=== PATIENT | male | born 1950 | race Two or more races ===

== ENCOUNTER 2020-05-06 09:51 | Inpatient (IN) | payer MEDICAID ==
[~2020-05-06] VITALS: Ht 182.9 cm; Wt 96.5 kg
[2020-05-06 10:34] LABS: Basophils # (auto) 0 10 ^3/uL (0-0.2); Basophils % (auto) 0.8 % (0.0-2.0); Eosinophils # (auto) 0.1 10 ^3/uL (0-0.8); Eosinophils % (auto) 1.7 % (0.0-7.0); Hematocrit 43.3 % (41.0-53.0); Hemoglobin 15.2 g/dL (13.5-17.5); Lymphocytes # (auto) 1.4 10 ^3/uL (0.4-5.4); Lymphocytes % (auto) 25.6 % (10.0-50.0); Mean Corpuscular Hemoglobin 33.3 pg (28.0-32.0); Mean Corpuscular Hgb Conc. 35.1 g/dL (32.0-36.0); Mean Corpuscular Volume 94.7 fL (80.0-100.0); Monocytes # (auto) 0.5 10 ^3/uL (0-1.3); Monocytes % (auto) 9.2 % (0.0-12.0); Neutrophils # (auto) 3.5 10 ^3/uL (1.6-8.6); Neutrophils % (auto) 62.7 % (37.0-80.0); Platelet Count (auto) 203 10^3/uL (140-450); Red Blood Cells 4.57 10^6/uL (4.5-5.90); Red Cell Distribution Width 13.5 % (11.8-14.3); White Blood Cell 5.6 10^3/uL (4.4-10.8)
[2020-05-06 10:51] LABS: Albumin 3.9 g/dL (3.4-5.0); Anion Gap 6 (5-15); Blood Urea Nitrogen 21 mg/dL (7-18); Calcium 9.2 mg/dL (8.5-10.1); Carbon Dioxide 25 mmol/L (21-32); Chloride 109 mmol/L (98-107); Glucose 96 mg/dL (74-106); INR 1.02 (0.9-1.15); Magnesium 2.5 mg/dL (1.6-2.6); Potassium 3.7 mmol/L (3.5-5.1); Sodium 140 mmol/L (136-145)
[2020-05-06 10:58] LABS: Alanine Aminotransferase 47 U/L (16-61); Alkaline Phosphatase 70 U/L (45-117); Aspartate Aminotransferase 30 U/L (15-37); BUN/Creatinine Ratio 12.4; Bilirubin, Total 2.5 mg/dL (0.2-1.0); GFR African American 52 mL/min; GFR Non-African American 43 mL/min; Total Protein 7.5 g/dL (6.4-8.2)
[2020-05-06] MEDS: SODIUM CHLORIDE 0.9% 1,000 ML IV SCH (12:00)
[2020-05-06] MEDS ORDERED: MORPHINE SULF INJ 2 MG/ML SYRINGE 1ML IV PRN (12:00)
[2020-05-06] MEDS ORDERED: NITROGLYCERIN 0.4 MG SL TAB SL PRN (12:00)
[2020-05-06] MEDS ORDERED: ONDANSETRON ODT 4 MG TAB PO PRN (12:15)
[2020-05-06] MEDS ORDERED: DOCUSATE SOD 100 MG CAP PO PRN (12:15)
--- NOTE | 2020-05-06 13:35 | NUR ---
SPOKE WITH DR. GAMEZ REGARDING PATIENTS STATUS AND CARDIOLOGY CONSULT. NO NEW ORDERS RECEIVED AT THIS TIME. Addendum: 05/06/20 at 7463 by XANDER WEST RN RN THE ABOVE NOTE WAS FOR 0128.
--- NOTE | 2020-05-06 14:20 | NUR ---
RECEIVED PATIENT FROM ER FOR TELE HOLD OVERFLOW. PATIENT AWAKE AND ALERT, NO S/S OF DISTRESS NOTED. CARDIAC MONITORS SHOW SINUS EDUARDA 40'S, PATIENT CURRENTLY ASYMPTOMATIC. PATIENT DENIES ANY PAIN AT THIS TIME. SAFETY PRECAUTIONS IN PLACE.
[2020-05-06 14:41] VITALS: BP 130/65
[2020-05-06] MEDS ORDERED: LOSA25TA38 PO (15:06)
--- NOTE | 2020-05-06 15:30 | NUR ---
SURVEYOR'S ASSISTANT AT BEDSIDE.
[2020-05-06 16:00] VITALS: BP 125/61
--- NOTE | 2020-05-06 16:20 | NUR ---
CALLED REPORT TO JOSE MARIA HUDSON. PATIENT TRANSFERRED BY SELMA MOISE TO ROOM 218A [facility]IA [facility] IN STABLE CONDITION ON TELE MONITOR AND WITH ALL BELONGINGS.
--- NOTE | 2020-05-06 17:45 | NUR ---
PT AWAKE, ALERT, ORIENTED x4 DENIES ANY DISCOMFORT. EFFORTLESS BREATHING ON ROOM AIR. PT ORIENTED TO ROOM ENVIRONMENT. IV TO LEFT HAND #20 BED IN LOWEST POSITION, CALL LIGHT WITHIN REACH.
--- NOTE | 2020-05-06 18:00 | NUR ---
DR. GAMEZ AT BEDSIDE.
--- NOTE | 2020-05-06 19:15 | NUR ---
OPENING NOTE- NOC SHIFT PATIENT IS ALERT AND ORIENTED X4. PATIENT IS SPEAKS PERSIAN ONLY. PATIENT IS IN BED, BED IS LOCKED AT LOWEST POSITION, BED RAILS UP X2 AND HEAD OF BED IS UP >30 DEGREES. BEDSIDE TABLE WITHIN REACH, CALL LIGHT WITHIN REACH. DISCUSSED POC WITH PATIENT AND INSTRUCTED PATIENT TO CALL PRN; PATIENT VERBALIZED UNDERSTANDING. WILL CONTINUE TO MONITOR Q1H AND PRN.
--- NOTE | 2020-05-06 19:45 | NUR ---
PATIENT UP TO BATHROOM INDEPENDENTLY; STEADY GAIT NOTED.
[2020-05-06 22:00] VITALS: BP_SYST 127
--- NOTE | 2020-05-07 03:05 | NUR ---
EKG COMPLETED FOR BRADYCARDIA. HARDCOPY READING IN HARD CHART.
[2020-05-07] MEDS: SODIUM CHLORIDE 0.9% 1,000 ML IV SCH ×2 (03:17→13:09)
[2020-05-07 05:00] VITALS: BP 137/68
[2020-05-07 06:18] LABS: Basophils # (auto) 0.1 10 ^3/uL (0-0.2); Basophils % (auto) 1.1 % (0.0-2.0); Eosinophils # (auto) 0.2 10 ^3/uL (0-0.8); Eosinophils % (auto) 3.6 % (0.0-7.0); Hematocrit 41.6 % (41.0-53.0); Hemoglobin 14.2 g/dL (13.5-17.5); Lymphocytes # (auto) 1.4 10 ^3/uL (0.4-5.4); Lymphocytes % (auto) 25.8 % (10.0-50.0); Mean Corpuscular Hemoglobin 32.5 pg (28.0-32.0); Mean Corpuscular Hgb Conc. 34.2 g/dL (32.0-36.0); Mean Corpuscular Volume 95.2 fL (80.0-100.0); Monocytes # (auto) 0.5 10 ^3/uL (0-1.3); Monocytes % (auto) 9.5 % (0.0-12.0); Neutrophils # (auto) 3.3 10 ^3/uL (1.6-8.6); Nucleated Red Blood Cells % 0.4 %; Platelet Count (auto) 183 10^3/uL (140-450); Red Blood Cells 4.37 10^6/uL (4.5-5.90); Red Cell Distribution Width 13.5 % (11.8-14.3); White Blood Cell 5.4 10^3/uL (4.4-10.8)
[2020-05-07 06:38] LABS: BUN/Creatinine Ratio 13.1; Calcium 8.6 mg/dL (8.5-10.1); Potassium 3.8 mmol/L (3.5-5.1)
--- NOTE | 2020-05-07 07:05 | NUR ---
CLOSING NOTE- NOC SHIFT ENDORSED PATIENT CARE TO DAY SHIFT NURSE ADEBAYO MOISE. PATIENT IS COMFORTABLE IN BED. NO S/SX OF DISTRESS OR SOB. PATIENT DENIES PAIN AT THIS TIME.
--- NOTE | 2020-05-07 08:50 | NUR ---
PT TAKEN TO STRESS TEST VIA WHEELCHAIR. NO S/S OF DISTRESS.
[2020-05-07 09:00] VITALS: BP 126/71
--- NOTE | 2020-05-07 09:40 | NUR ---
PT BACK IN UNIT. PT IN LOW FOWLERS. DENIES ANY DISCOMFORT.
[2020-05-07] MEDS ORDERED: LOSARTAN POTASSIUM 25 MG TAB PO SCH (10:00)
[2020-05-07] MEDS ORDERED: LIDOCAINE 2%HCL (LOCAL ANESTH.) INJ 20ML MDV ONE (10:04)
--- NOTE | 2020-05-07 10:35 | NUR ---
PT TAKEN TO ELECTRICAL EQUIPMENT ASSEMBLER VIA BED. NO S/S OF DISTRESS.
[2020-05-07] MEDS ORDERED: ANGIOMAX 250 MG VIAL IV ONE (10:49)
[2020-05-07] MEDS ORDERED: MIDAZOLAM HCL 1MG/1ML-2 ML VIAL ONE (10:50)
[2020-05-07] MEDS ORDERED: fentaNYL CITRATE 100 MCG/2 ML VL ONE (10:50)
[2020-05-07] MEDS ORDERED: VERAPAMIL 2.5MG/ML INJ 2ML VIAL IV ONE (10:50)
[2020-05-07] MEDS ORDERED: SODIUM CHL 0.9% 50 ML ONE (10:50)
[2020-05-07] MEDS ORDERED: HEPARIN SODIUM (PORCINE) 5000 UNITS/ML 1ML VIAL ONE (10:50)
[2020-05-07] MEDS ORDERED: IODIXANOL 320MG/ML 100ML BTL IV ONE (11:23)
[2020-05-07] MEDS ORDERED: ADENOSINE 6 MG/2 ML INJ IV ONE (11:32)
[2020-05-07] MEDS ORDERED: diphenhdrAMINE HCL 50 MG/1 ML VL ONE (11:36)
[2020-05-07] MEDS ORDERED: ADENOSINE 90 MG/30 ML INJ IV ONE (11:37)
[2020-05-07] MEDS ORDERED: SODIUM CHLORIDE 0.9% 1,000 ML IV SCH (12:17)
[2020-05-07 13:00] VITALS: BP 113/65
[2020-05-07] MEDS: SODIUM CHLOR 0.9% PF (SALINE LOCK) 10ML VIAL/SYR IV SCH ×2 (13:10→22:14)
--- NOTE | 2020-05-07 14:43 | NUR ---
1300: PT BACK FROM AN/SYQ 13 NAV/C2 OPERATOR. TR BAND TO RIGHT WRIST ASYMPTOMATIC AT MOMENT. 1330: BAND DEFLATION INITIATED. 1430: BAND DEFLATION COMPLETED. NO ACTIVE BLEEDING AT MOMENT. TEGADERM DRESSING IN PLACE. SENSATION INTACT, +2 PULSES TO ALL EXTREMITIES. CALL LIGHT WITHIN REACH. WILL CONTINUE TO MONITOR.
[2020-05-07 17:00] VITALS: BP 118/66
--- NOTE | 2020-05-07 20:20 | NUR ---
ORTHOSTATIC VITAL SIGNS 128/68 48 HR 94%
[2020-05-07 22:00] VITALS: BP 125/64
[2020-05-08] MEDS: SODIUM CHLORIDE 0.9% 1,000 ML IV SCH ×2 (04:11→10:49)
--- NOTE | 2020-05-08 05:00 | NUR ---
ORTHOSTATIC VITALS SIGNS 128/58 44 HR 96% O2
[2020-05-08] MEDS: SODIUM CHLOR 0.9% PF (SALINE LOCK) 10ML VIAL/SYR IV SCH ×3 (06:00→22:00)
--- NOTE | 2020-05-08 06:26 | NUR ---
SPOKE WITH DOCTOR FRANCO GAMEZ MD AWARE OF PATIENT'S HEART RATE IN 30s AND SPORADICALLY DROPPING TO 29. PATIENT IS ASYMPTOMATIC. PATIENT DENIES DIZZINESS. BED ALARM ON AND INSTRUCTED PATIENT TO CALL USING CALL LIGHT FOR STANDBY ASSISTANCE WHEN GETTING OUT OF BED AND PRN; PATIENT VERBALIZED UNDERSTANDING. CALL LIGHT WITHIN REACH. PATIENT ON CONTINUOUS EKG MONITORING.
--- NOTE | 2020-05-08 07:30 | NUR ---
RECEIVED REPORT AND CONTINUATION OF CARE,PATIENT AWAKE,ALERT SPEAK ROMANIAN ONLY,ON ROOM AIR,NO DISTRESS NO DISCOMFORT,HR REMAINS BRADYCARDIC AT HR 0F 44,NO C/O DIZZINESS,NO CHEST PAIN,CALL LIGHT WITHIN REACH PATIENT REMINDED INSTRUCTED TO CALL FOR ASSISTANCE,PATIENT VERBALIZED UNDERSTANDING.
--- NOTE | 2020-05-08 08:00 | NUR ---
MD VISIT DR. Soco ROSS HERE TO SEE PATIENT,UPDATED WITH PLAN OF CARE
[2020-05-08 09:00] VITALS: BP 144/70
--- NOTE | 2020-05-08 09:00 | NUR ---
OOB,AMBULATES TO REST ROOM NO DISTRESS,NO DISCOMFORT
--- NOTE | 2020-05-08 12:09 | NUR ---
TELEMETRY SHOWING SINUS BRADYCARDIA HR OF 38 TO 42 ,SYMPTOMATIC,NO DIZZINESS
[2020-05-08 13:00] VITALS: BP 138/72
[2020-05-08 17:40] VITALS: BP 118/72
--- NOTE | 2020-05-08 18:49 | NUR ---
NO CHEST PAIN, NO DISTRESS,NO DISCOMFORT,REMAINS BRADYCARDIC AT HR OF 40'S
--- NOTE | 2020-05-08 19:25 | NUR ---
Opening Shift Note Assumed care of patient, awake and alert. No S/S of distress/SOB or pain. Patient denies any dizziness. Bed is locked in the lowest position with call light within reach. Instructed on POC and to call for assist PRN, will continue to monitor for changes Q1hr and PRN.
[2020-05-08 22:00] VITALS: BP 152/76
[2020-05-09 05:00] VITALS: BP 116/63
[2020-05-09] MEDS: SODIUM CHLOR 0.9% PF (SALINE LOCK) 10ML VIAL/SYR IV SCH ×3 (06:00→22:00)
[2020-05-09] MEDS: SODIUM CHLORIDE 0.9% 1,000 ML IV SCH ×2 (06:30→19:40)
[2020-05-09 09:00] VITALS: BP 123/61
[2020-05-09] MEDS: ACETAMINOPHEN 500 MG TAB PO PRN ×2 (11:48→16:36)
--- NOTE | 2020-05-09 12:29 | NUR ---
Nutrition Assessment Notes Please refer to link for full assessment notes. Est Energy needs: 7713-0746 kcals (22-25 kcal/kgBW) Est Protein needs: 97-106 gms/day (1.0-1.1 gm/kgBW) Will continue to monitor and reassess prn. Addendum: 05/09/20 at [address] Amended: Links added.
[2020-05-09 13:00] VITALS: BP 138/57
[2020-05-09 17:00] VITALS: BP 140/71
--- NOTE | 2020-05-09 19:40 | NUR ---
Opening Shift Note Assumed care of patient, awake and alert. No S/S of distress/SOB or pain. Bed is locked in lowest. Instructed on POC and to call for assist PRN, will continue to monitor for changes Q1hr and PRN.
[2020-05-09 22:00] VITALS: BP 143/76
[2020-05-10 05:00] VITALS: BP 119/64
[2020-05-10] MEDS: SODIUM CHLOR 0.9% PF (SALINE LOCK) 10ML VIAL/SYR IV SCH ×3 (06:00→23:23)
[2020-05-10 08:00] VITALS: BP 122/67
--- NOTE | 2020-05-10 08:41 | NUR ---
PATIENT SCHEDULED FOR PACEMAKER IMPLANTATION TODAY
[2020-05-10] MEDS: SODIUM CHLORIDE 0.9% 1,000 ML IV SCH ×2 (08:59→22:20)
[2020-05-10 09:03] VITALS: BP 122/67
[2020-05-10 09:32] LABS: Basophils # (auto) 0.1 10 ^3/uL (0-0.2); Basophils % (auto) 0.9 % (0.0-2.0); Eosinophils # (auto) 0.1 10 ^3/uL (0-0.8); Eosinophils % (auto) 2.1 % (0.0-7.0); Hematocrit 38.7 % (41.0-53.0); Hemoglobin 13.3 g/dL (13.5-17.5); Lymphocytes # (auto) 1.4 10 ^3/uL (0.4-5.4); Lymphocytes % (auto) 22.7 % (10.0-50.0); Mean Corpuscular Hemoglobin 32.8 pg (28.0-32.0); Mean Corpuscular Hgb Conc. 34.3 g/dL (32.0-36.0); Mean Corpuscular Volume 95.5 fL (80.0-100.0); Monocytes # (auto) 0.8 10 ^3/uL (0-1.3); Monocytes % (auto) 12.8 % (0.0-12.0); Neutrophils # (auto) 3.9 10 ^3/uL (1.6-8.6); Neutrophils % (auto) 61.5 % (37.0-80.0); Nucleated Red Blood Cells % 0.1 %; Platelet Count (auto) 176 10^3/uL (140-450); Red Blood Cells 4.05 10^6/uL (4.5-5.90); Red Cell Distribution Width 13.5 % (11.8-14.3); White Blood Cell 6.4 10^3/uL (4.4-10.8)
[2020-05-10 09:45] LABS: BUN/Creatinine Ratio 10.6; Calcium 8.5 mg/dL (8.5-10.1); Potassium 3.6 mmol/L (3.5-5.1)
[2020-05-10 09:48] LABS: Bilirubin, Total 2.6 mg/dL (0.2-1.0); Total Protein 6.3 g/dL (6.4-8.2)
[2020-05-10 09:53] LABS: INR 0.97 (0.9-1.15); Partial Thromboplastin Time 25.8 sec (23.0-31.2)
[2020-05-10 10:09] VITALS: BP 122/67
[2020-05-10] MEDS ORDERED: VANCOMYCIN HCL 1000 MG VL ONE (10:23)
[2020-05-10] MEDS ORDERED: fentaNYL CITRATE 100 MCG/2 ML VL ONE (10:24)
[2020-05-10] MEDS ORDERED: VANCOMYCIN 1GM/250ML 250 ML IV ONE (10:24)
[2020-05-10] MEDS ORDERED: MIDAZOLAM HCL 1MG/1ML-2 ML VIAL ONE (10:24)
[2020-05-10] MEDS ORDERED: LIDOCAINE 2%HCL (LOCAL ANESTH.) INJ 20ML MDV ONE (10:24)
[2020-05-10] MEDS ORDERED: diphenhdrAMINE HCL 50 MG/1 ML VL ONE (10:55)
[2020-05-10] MEDS: ACETAMINOPHEN 500 MG TAB PO PRN ×2 (13:53→18:28)
[2020-05-10 17:00] VITALS: BP 124/74
--- NOTE | 2020-05-10 19:40 | NUR ---
OPENING NOTE Received report from day shift RN. Patient is A&O X's 4 with no s/s of distress and reports no pain at this time. Educated patient on POC and to use call light when in need of assistance. Patient verbalized understanding. Patient is currently sitting in chair at bedside. Call light is within reach of patient. Educated patient not to roll from side to side/ not to lift/reach or pull with left arm and to keep arm in sling. Patient verbalized understanding. Ice pack provided for patient's left shoulder. Patient's dressing to left upper chest has dried sanguineous fluid on gauze. This area was marked to assess and observe if any more bleeding continues. Will continue care.
[2020-05-10 22:00] VITALS: BP 129/79
[2020-05-10] MEDS ORDERED: HYDROcodone-ACET 5/325MG TAB PO PRN (23:30)
--- NOTE | 2020-05-10 23:40 | NUR ---
NOTE No new bleeding noted to left upper chest dressing. Patient was c/o headache and some pain to left shoulder rating at a 6/10. Received orders for pain medication from hospitalist. New ice pack given to patient. Will continue care. Patient shows no s/s of distress.
[2020-05-11 05:00] VITALS: BP 134/72
[2020-05-11] MEDS: SODIUM CHLOR 0.9% PF (SALINE LOCK) 10ML VIAL/SYR IV SCH ×2 (06:37→14:00)
[2020-05-11 08:00] VITALS: BP 123/73
[2020-05-11 09:00] VITALS: BP 123/73
[2020-05-11] MEDS: SODIUM CHLORIDE 0.9% 1,000 ML IV SCH (11:40)
--- NOTE | 2020-05-11 12:57 | NUR ---
PATIENT PACEMAKER INTERROGATED
[2020-05-11 13:00] VITALS: BP 131/75
--- NOTE | 2020-05-11 16:16 | NUR ---
PATIENT DISCHARGED HOME WITH FAMILY. TELEMETRY BOX REMOVED AND RETURNED TO TELEMETRY DEPARTMENT. ALL IV ACCESS DISCONTINUED. ALL DISCHARGE INSTRUCTIONS GIVEN. ALL DISCHARGE PAPERWORK SIGNED.
--- NOTE | 2020-05-11 16:40 | NUR ---
assessment Per consult insurance. Patient discharged home prior to being assessed. Lan Webber from [facility] will follow up with patient. Addendum: 05/12/20 at 1616 by Gabriela Astudillo Amended: Links added.
== END 2020-05-11 16:20 | disposition home or self-care (01) | DRG 171 ==
LOC: ER 09:51 → TELE 09:52 → TELE-CENTR 17:00
PROVIDERS: ATTEND Family Medicine
PROC: 4A023N7 Measurement of Cardiac Sampling and Pressure, Left Heart, Percutaneous Approach (ICD-10-PCS; principal; 2020-05-07)
PROC: B2111ZZ Fluoroscopy of Multiple Coronary Arteries using Low Osmolar Contrast (ICD-10-PCS; 2020-05-07)
PROC: B2151ZZ Fluoroscopy of Left Heart using Low Osmolar Contrast (ICD-10-PCS; 2020-05-07)
PROC: 4A033BC Measurement of Arterial Pressure, Coronary, Percutaneous Approach (ICD-10-PCS; 2020-05-07)
PROC: 0JH606Z Insertion of Pacemaker, Dual Chamber into Chest Subcutaneous Tissue and Fascia, Open Approach (ICD-10-PCS; 2020-05-10)
PROC: 02H63JZ Insertion of Pacemaker Lead into Right Atrium, Percutaneous Approach (ICD-10-PCS; 2020-05-10)
PROC: 02HK3JZ Insertion of Pacemaker Lead into Right Ventricle, Percutaneous Approach (ICD-10-PCS; 2020-05-10)
DX: I45.89 Other specified conduction disorders (principal); N17.9 Acute kidney failure, unspecified; R00.1 Bradycardia, unspecified; I10 Essential (primary) hypertension; R42 Dizziness and giddiness; Z80.9 Family history of malignant neoplasm, unspecified; Z83.3 Family history of diabetes mellitus; Z79.899 Other long term (current) drug therapy; Z90.49 Acquired absence of other specified parts of digestive tract
CPT/HCPCS: 33208; 36415; 71045; 80048; 80053; 82533; 83735; 83880; 84443; 84484; 85025; 85379; 85610; 85730; 86850; 86900; 86901; 93005; 93306; 93458; 93571; 96361; 96374; 99152; 99153; C1887; G0378; J0153; J2250; Q9967